=== PATIENT | male | born 1945 | race Two or more races ===

== ENCOUNTER 2018-09-25 02:11 | Emergency (ER) | payer BC, OTHER ==
[~2018-09-25] VITALS: Ht 162.6 cm; Wt 65.3 kg
[~2018-09-25 02:11] MED LIST: BENA40TA7 PO; PANT1INJ3 PO; PIOG30TA8 PO; SIMV-13 PO; TAMS0.4C36 PO; [UNRECOGNIZED DRUG - OTHER] PO
[2018-09-25 02:21] VITALS: BP 137/72
== END 2018-09-25 04:08 | disposition home or self-care (01) ==
LOC: EDBD 02:11 → ER 02:11
DX: F41.9 Anxiety disorder, unspecified (principal); M62.838 Other muscle spasm; M54.2 Cervicalgia; G47.00 Insomnia, unspecified; R51 Headache; E11.9 Type 2 diabetes mellitus without complications; K21.9 Gastro-esophageal reflux disease without esophagitis; E78.5 Hyperlipidemia, unspecified; I10 Essential (primary) hypertension; Z88.2 Allergy status to sulfonamides; Z79.899 Other long term (current) drug therapy
CPT/HCPCS: 82962; 93005

== ENCOUNTER 2018-11-10 23:03 | Emergency (ER) | payer OTHER ==
[~2018-11-10] VITALS: Ht 162.6 cm; Wt 67.6 kg
[2018-11-10] MEDS ORDERED: cloNIDine HCL 0.1 MG TAB PO ONE (23:15)
[2018-11-10 23:40] LABS: Basophils # (auto) 0 uL; Basophils % (auto) 0.7 % (0.0-2.0); Eosinophils # (auto) 0.2 uL; Eosinophils % (auto) 3.4 % (0.0-7.0); Hematocrit 46.3 % (41.0-53.0); Hemoglobin 15.4 g/dL (13.5-17.5); Lymphocytes # (auto) 1.6 uL; Lymphocytes % (auto) 33.5 % (10.0-50.0); Mean Corpuscular Hemoglobin 31.3 pg (28.0-32.0); Mean Corpuscular Hgb Conc. 33.2 g/dL (32.0-36.0); Mean Corpuscular Volume 94.5 fL (80.0-100.0); Monocytes # (auto) 0.6 uL; Monocytes % (auto) 11.6 % (0.0-12.0); Neutrophils # (auto) 2.4 uL; Neutrophils % (auto) 50.8 % (37.0-80.0); Nucleated Red Blood Cells % 0.1 %; Platelet Count (auto) 183 10^3/uL (140-450); Red Cell Distribution Width 13.1 % (11.8-14.3); White Blood Cell 4.8 10^3/uL (4.4-10.8)
[2018-11-10 23:54] LABS: INR 1.03 (0.9-1.15); Partial Thromboplastin Time 29.4 sec (23.78-33.04)
[2018-11-11 00:01] LABS: Albumin 4.1 g/dL (3.4-5.0); Blood Urea Nitrogen 27 mg/dL (7-18); Calcium 8.2 mg/dL (8.5-10.1); Chloride 106 mmol/L (98-107); Potassium 4.3 mmol/L (3.5-5.1); Sodium 139 mmol/L (136-145)
[2018-11-11 00:04] LABS: Alanine Aminotransferase 29 U/L (16-61); Anion Gap 8 (5-15); Aspartate Aminotransferase 27 U/L (15-37); BUN/Creatinine Ratio 21.4; Carbon Dioxide 25 mmol/L (21-32); GFR African American 72 mL/min; GFR Non-African American 60 mL/min; Glucose 175 mg/dL (74-106); Magnesium 2.3 mg/dL (1.6-2.6)
[2018-11-11 00:10] LABS: Alkaline Phosphatase 110 U/L (45-117); Bilirubin, Total 0.5 mg/dL (0.2-1.0); Total Protein 7.7 g/dL (6.4-8.2)
[2018-11-11 03:00] VITALS: BP 136/90
== END 2018-11-11 03:00 | disposition home or self-care (01) ==
LOC: ER 23:09
DX: R07.89 Other chest pain (principal); F41.9 Anxiety disorder, unspecified; E78.5 Hyperlipidemia, unspecified; I10 Essential (primary) hypertension; E11.9 Type 2 diabetes mellitus without complications; Z88.2 Allergy status to sulfonamides; Z79.899 Other long term (current) drug therapy
CPT/HCPCS: 36415; 71046; 80053; 83735; 83880; 84443; 84484; 85025; 85610; 85730; 93005